=== PATIENT | male | born 1980 | race Caucasian/White ===

== ENCOUNTER 2020-05-25 10:03 | Day surgery (SDC) | payer OTHER ==
[~2020-05-25] VITALS: Ht 182.9 cm; Wt 107.0 kg
[2020-05-25] VITALS (11 sets, daily range): BP systolic 12–120; BP diastolic 51–67
[~2020-05-25 10:03] MED LIST: CETI10TA57 PO; SULFAMETHOXAZOLE PO
[2020-05-25] MEDS ORDERED: LACTATED RINGERS 1000ML 1,000 ML IV ONE (11:35)
[2020-05-25] MEDS ORDERED: LEVOFLOXACIN 500 MG/D5W 100 ML 100 ML ONE (12:23)
[2020-05-25] MEDS ORDERED: KETAMINE 50MG/ML SYRINGE 50 MG/ML DISP.SYRIN IV ONE (12:27)
[2020-05-25] MEDS ORDERED: PROPOFOL 1000 MG/100 ML 100 ML IV ONE (12:27)
[2020-05-25] MEDS ORDERED: MIDAZOLAM HCL 1 MG/ML 2ML VIAL ONE (12:29)
[2020-05-25] MEDS ORDERED: LIDOCAINE HCL 1% 20 ML VIAL ONE (12:36)
[2020-05-25] MEDS ORDERED: LIDOCAINE HCL-MPF 0.5% 50ML VIAL IJ ONE (12:36)
[2020-05-25] MEDS ORDERED: BUPIVACAINE/PF 0.5% 30ML VIAL ONE (12:36)
[2020-05-25] MEDS ORDERED: TRANEXAMIC ACID 1000MG/10ML ONE (15:01)
== END 2020-05-25 14:30 | disposition home or self-care (01) ==
LOC: DAH 10:03
PROVIDERS: ATTEND Specialist
DX: R22.41 Localized swelling, mass and lump, right lower limb (principal); L72.0 Epidermal cyst; Z20.828 Contact with and (suspected) exposure to other viral communicable diseases; E66.01 Morbid (severe) obesity due to excess calories; G47.30 Sleep apnea, unspecified; M19.90 Unspecified osteoarthritis, unspecified site; E78.5 Hyperlipidemia, unspecified; D69.6 Thrombocytopenia, unspecified; Z79.899 Other long term (current) drug therapy; Z98.890 Other specified postprocedural states; Z68.33 Body mass index [BMI] 33.0-33.9, adult; Z88.0 Allergy status to penicillin
CPT/HCPCS: 11403; 87426; 88304; A4215; A4221; A4222; A4223; A4606; A4663; A6206; J1956; J2250; J2704; J3490 ×2; J7120